=== PATIENT | female | born 1960 | race Two or more races ===

== ENCOUNTER 2024-01-13 07:05 | Inpatient (IN) | payer OTHER ==
[~2024-01-13] VITALS: Ht 152.4 cm; Wt 65.2 kg
[2024-01-13] VITALS (8 sets, daily range): BP systolic 116–145; BP diastolic 62–78; PULSE 65–74; RESP 15–18; TEMP 98–98.6; O2SAT 96–100
[2024-01-13 08:04] LABS: Basophils # (auto) 0.1 10 ^3/uL (0-0.2); Eosinophils # (auto) 0.3 10 ^3/uL (0-0.8); Hematocrit 21.5 % (36.0-46.0); Monocytes # (auto) 0.3 10 ^3/uL (0-1.3)
[2024-01-13 08:07] LABS: Basophils % (auto) 1.8 % (0.0-2.0); Eosinophils % (auto) 4.2 % (0.0-7.0); Lymphocytes # (auto) 1.1 10 ^3/uL (0.4-5.4); Lymphocytes % (auto) 15.1 % (10.0-50.0); Mean Corpuscular Hemoglobin 19.5 pg (28.0-32.0); Mean Corpuscular Hgb Conc. 29.8 g/dL (32.0-36.0); Mean Corpuscular Volume 65.5 fL (80.0-100.0); Monocytes % (auto) 3.7 % (0.0-12.0); Neutrophils # (auto) 5.6 10 ^3/uL (1.6-8.6); Neutrophils % (auto) 75.2 % (37.0-80.0); Nucleated Red Blood Cells % 0.1 %; Platelet Count (auto) 454 10^3/uL (140-450); Red Blood Cells 3.29 10^6/uL (4.0-5.20); Red Cell Distribution Width 21.6 % (11.8-14.3); White Blood Cell 7.5 10^3/uL (4.4-10.8)
[2024-01-13 08:21] LABS: Hemoglobin 6.4 g/dL (12.2-16.2)
[2024-01-13 08:29] LABS: Alanine Aminotransferase 16 U/L (7-40); Albumin 4.3 g/dL (3.2-4.8); Alkaline Phosphatase 216 U/L (46-116); Anion Gap 7 (5-15); Aspartate Aminotransferase 11 U/L (13-40); Blood Urea Nitrogen 9 mg/dL (9-23); Calcium 9.2 mg/dL (8.7-10.4); Carbon Dioxide 25 mmol/L (20-31); Chloride 107 mmol/L (98-107); Glucose 243 mg/dL (74-106); Potassium 3.4 mmol/L (3.5-5.1); Sodium 139 mmol/L (136-145)
[2024-01-13 08:30] LABS: Bilirubin, Total 0.3 mg/dL (0.2-1.0); Total Protein 7.6 g/dL (5.7-8.2)
[2024-01-13] MEDS ORDERED: NITROGLYCERIN 0.4 MG SL TAB SL PRN (08:45)
[2024-01-13] MEDS ORDERED: MORPHINE SULFATE INJ 2 MG/ml SYRG IV PRN (08:45)
[2024-01-13 09:00] LABS: Anisocytosis Slight; Hypochromia Marked; Platelet Estimate Increased
[2024-01-13 09:24] LABS: INR 1.03 (0.9-1.15); Prothrombin Time 10.9 sec (9.3-11.8)
[2024-01-13] MEDS: SOD CHL 0.45% 1,000 ML IV ONE (09:57)
[2024-01-13] MEDS: PANTOPRAZOLE 40 MG/10 ML VIAL INJ IV ONE (10:50)
[2024-01-13 21:24] LABS: Urine Bacteria None Seen /hpf (None Seen)
[2024-01-13 21:51] LABS: Urine Blood Negative /uL (Negative); Urine Clarity Turbid (Clear); Urine Color Light-Yellow (Yellow); Urine Protein, UAD Negative (Negative); Urine Urobilinogen Normal (Negative); Urine WBC 4 /hpf (0 - 5)
[2024-01-13 22:18] LABS: Hemoglobin 9.1 g/dL (12.2-16.2)
[2024-01-14] VITALS (8 sets, daily range): BP systolic 131–138; BP diastolic 63–74; PULSE 59–85; RESP 16–20; TEMP 98–98.9; O2SAT 96–98
[2024-01-14] MEDS: MORPHINE SULFATE INJ 2 MG/ml SYRG IV PRN (00:22)
[2024-01-14] MEDS ORDERED: INDO-34 PO (01:44)
[2024-01-14] MEDS ORDERED: TRAM50TA2 PO (01:44)
[2024-01-14] MEDS ORDERED: LEVO-849 PO (01:44)
[2024-01-14] MEDS ORDERED: GABA-339 PO (01:44)
[2024-01-14] MEDS ORDERED: ATOR20TA PO (01:44)
[2024-01-14] MEDS ORDERED: LOSA-534 PO (01:44)
[2024-01-14] MEDS ORDERED: ASPI-543 PO (01:44)
[2024-01-14 07:10] LABS: Chloride 110 mmol/L (98-107); Potassium 3.8 mmol/L (3.5-5.1); Sodium 140 mmol/L (136-145)
[2024-01-14 07:11] LABS: Anion Gap 7 (5-15); Carbon Dioxide 23 mmol/L (20-31)
[2024-01-14 07:12] LABS: Calcium 9.5 mg/dL (8.7-10.4)
[2024-01-14 07:16] LABS: BUN/Creatinine Ratio 7.1 (10.0-20.0); Blood Urea Nitrogen 7 mg/dL (9-23); Glucose 97 mg/dL (74-106)
[2024-01-14 07:33] LABS: Basophils # (auto) 0.3 10 ^3/uL (0-0.2); Basophils % (auto) 2.6 % (0.0-2.0); Eosinophils # (auto) 0.4 10 ^3/uL (0-0.8); Hematocrit 30.8 % (36.0-46.0); Hemoglobin 9.7 g/dL (12.2-16.2); Lymphocytes # (auto) 1.9 10 ^3/uL (0.4-5.4); Lymphocytes % (auto) 18.6 % (10.0-50.0); Mean Corpuscular Hemoglobin 22.6 pg (28.0-32.0); Mean Corpuscular Hgb Conc. 31.3 g/dL (32.0-36.0); Mean Corpuscular Volume 72.3 fL (80.0-100.0); Monocytes # (auto) 0.6 10 ^3/uL (0-1.3); Monocytes % (auto) 5.7 % (0.0-12.0); Neutrophils # (auto) 7.2 10 ^3/uL (1.6-8.6); Neutrophils % (auto) 69.1 % (37.0-80.0); Nucleated Red Blood Cells % 0.8 %; Platelet Count (auto) 416 10^3/uL (140-450); Red Blood Cells 4.26 10^6/uL (4.0-5.20); White Blood Cell 10.4 10^3/uL (4.4-10.8)
[2024-01-14] MEDS ORDERED: SODIUM CHLORIDE LOCK 10 ML ONE (13:15)
[2024-01-14] MEDS: diphenhdrAMINE HCL 50 MG/1 ML VL ONE (14:22)
[2024-01-14] MEDS: fentaNYL CITRATE 100 MCG/2 ML VL ONE (14:22)
[2024-01-14] MEDS: MIDAZOLAM HCL 5 MG/ML-1ML VIAL ONE (14:22)
[2024-01-14] MEDS: LIDOCAINE VISCOUS 2% 15ML UD ONE (14:22)
[2024-01-14] MEDS ORDERED: PANT40TA2 PO (15:02)
[2024-01-14] MEDS: PANTOPRAZOLE 40 MG/10 ML VIAL INJ IV ONE (15:58)
== END 2024-01-14 16:35 | disposition home or self-care (01) | DRG 382 ==
LOC: ER 07:05 → TELE 08:43 → TELE-WESTW 23:05
PROVIDERS: ADMIT Internal Medicine; ATTEND Student in an Organized Health Care Education/Training Program
PROC: 30233N1 Transfusion of Nonautologous Red Blood Cells into Peripheral Vein, Percutaneous Approach (ICD-10-PCS; 2024-01-13)
PROC: 0DB68ZX Excision of Stomach, Via Natural or Artificial Opening Endoscopic, Diagnostic (ICD-10-PCS; 2024-01-14)
PROC: 0DB48ZX Excision of Esophagogastric Junction, Via Natural or Artificial Opening Endoscopic, Diagnostic (ICD-10-PCS; 2024-01-14)
PROC: 0DB98ZX Excision of Duodenum, Via Natural or Artificial Opening Endoscopic, Diagnostic (ICD-10-PCS; principal; 2024-01-14 14:17)
DX: K22.11 Ulcer of esophagus with bleeding (principal); K29.71 Gastritis, unspecified, with bleeding; K29.81 Duodenitis with bleeding; K29.91 Gastroduodenitis, unspecified, with bleeding; K44.9 Diaphragmatic hernia without obstruction or gangrene; D63.8 Anemia in other chronic diseases classified elsewhere
CPT/HCPCS: 36415; 43239; 80048; 80053; 81001; 85014; 85018; 85025; 85610; 86850; 86900; 86901; 86920; 96361; 96374; G0378; J2250; J2470